=== PATIENT | male | born 1965 | race Hispanic/Latino ===

== ENCOUNTER 2019-11-25 16:22 | Emergency (ER) | payer SELFPAY ==
--- NOTE | ~2019-11-25 | XR_ITS ---
EXAMINATION: XR chest 2V EXAM DATE: 11/25/2019 17:11 INDICATION: US chest pain. Productive cough. TECHNIQUE: Frontal and lateral projections of the chest obtained and reviewed. Comparison is made to prior examination from 05/23/2016. FINDINGS: The lungs are clear. There are no pleural effusions. The cardiomediastinal silhouette is within normal limits. There is no pneumothorax suspected. The bones and soft tissues are unremarkab le. IMPRESSION: Unremarkable chest x-ray exam. Reviewed, dictated and finalized at location A. 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
--- NOTE | 2019-11-25 16:54 | ECG_ITS ---
Measurements Intervals [place] Rate: 97 P: 46 OH: 157 QRS: 13 QRSD: 108 T: 61 QT: 338 QTc: 430 Interpretive Statements SINUS RHYTHM INCOMPLETE RIGHT BUNDLE BRANCH BLOCK DELAYED PRECORDIAL R/S TRANSITION BORDERLINE ECG Electronically Signed On 11-25-2019 18:52:05 IMPORT SPECIALIST by Sunday Garcia D.O.
[2019-11-25 16:55] VITALS: BP 140/82; PULSE 94; RESP 17; TEMP 37.6; O2SAT 100
[2019-11-25 17:07] LABS: Basophils Absolute Auto 0.1 K/mm3 (0.0-0.1); Basophils Percent Auto 0.7 % (0.2-1.2); Eosinophils Absolute Auto 0.8 K/mm3 (0-0.3); Eosinophils Percent Auto 7.6 % (0-4.4); Hematocrit 42.3 % (42.0-52.0); Hemoglobin 14.5 g/dL (14.0-18.0); Immature Granulocyte Absolute 0.03 K/mm3 (0.00-0.031); Immature Granulocyte Percent A 0.3 % (0-0.5); Lymphocytes Absolute Auto 1.45 K/mm3 (0.9-3.2); Lymphocytes Percent Auto 13.5 % (18.3-44.2); Mean Corpuscular HGB Conc 34.3 g/dl (32-36); Mean Corpuscular Hemoglobin 30.5 pg (26-34); Mean Corpuscular Volume 88.9 fl (80-100); Mean Platelet Volume 9.3 fl (7.4-10.4); Monocytes Absolute Auto 0.7 K/mm3 (0.1-0.6); Monocytes Percent Auto 6.9 % (2.6-8.5); Neutrophils Absolute Auto 7.6 K/mm3 (1.3-6.7); Platelet Count Result 255 k/mm3 (150-375); Red Blood Count 4.76 M/mm3 (4.6-6.20); Red Cell Distribution Width 13.2 % (11.5-14.5); White Blood Count 10.7 K/mm3 (4.5-10.0)
[2019-11-25 17:17] LABS: Prothrombin Time 12.4 Seconds (11.1-14.7)
[2019-11-25 17:18] LABS: Blood Urea Nitrogen 12 mg/dL (9-20); Carbon Dioxide 28 mmol/L (22-30); Chloride 102 mmol/L (98-107); Estimated Glomerular Filt Rate > 60; Glucose 116 mg/dL (75-110); Partial Thromboplastin Time 28.5 SECONDS (22.3-36.8); Potassium 3.8 mmol/L (3.4-5.0); Sodium 138 mmol/L (137-145)
[2019-11-25 17:30] LABS: Troponin I < 0.012 ng/mL (0.000-0.034)
[2019-11-25 17:50] VITALS: BP 141/84; PULSE 93; RESP 13; O2SAT 98
--- NOTE | 2019-11-25 17:58 | ED.CHESTPAIN ---
HPI - Chest Pain General Chief Complaint: Chest Pain Stated Complaint: SOB Time Seen by Provider: 11/25/19 17:55 Source: family and RN notes reviewed Mode of arrival: other Limitations: no limitations History of Present Illness HPI narrative: Pt is a 54 y/o male who presents to the ED with c/o generalized chest tightness pain that began a few days ago. Pt?s daughter was at bedside and translated for the patient. Pt took Daquil and Cipro today. Pt's daughter notes that he took the Cipro today hoping his sore throat would go away. Pt had an old prescription of Cipro from a previous ear infection. Pt's chest pain is currently resolved. Pt also reports sore throat, fever, productive cough, and SOB, but denies nausea, vomiting, and lightheadedness. MD complaint: chest pain Onset (ago): day(s) (few) Timing of current episode: now resolved Pain location: other (midsternal) Pain radiation: none Quality: tightness Associated symptoms: dyspnea, fever, cough (productive) and other (sore throat) Treatment prior to arrival: other (Dayquil and Cipro) Related Data Allergies Allergy/AdvReac Type Severity Reaction Status Date / Time No Known Allergies Allergy Verified 04/16/19 13:22 Review of Systems Review of Systems: All systems reviewed & are unremarkable except as noted in HPI and below Constitutional: Constitutional: Reports fever(s) ENT: Reports sore throat Cardiovascular: Cardiovascular: Reports chest pain (midsternal) and Denies lightheadedness Respiratory: Respiratory: Reports cough (productive) Gastrointestinal: Gastrointestinal: Denies nausea and Denies vomiting PMFSH Past Medical History Medical History (Updated 11/25/19 @ 19:06 by Nubia Whelan) GERD (gastroesophageal reflux disease) HTN (hypertension) Hyperlipidemia Inguinal hernia Surgical History Surgical History (Updated 11/25/19 @ 19:06 by Nubia Whelan) H/O inguinal hernia repair History of orthopedic surgery left shoulder, lower back surgery Social History Social History Gender identity (if verbalized by the patient): Male Exam Const: General: healthy appearing and no acute distress Nutritional Appearance: well nourished HENMT: Mouth: Yes lip normal and Yes moist mucous membranes Throat: posterior oropharynx abnormal erythema Neck: Neck: lymphadenopathy anterior cervical Resp: Effort & Inspection: normal respiratory effort Auscultation: clear to auscultation bilaterally Cardio: Rate: regular rate Rhythm: regular rhythm Heart sounds: no murmurs Back/Spine/Pelvis: Back: other (full ROM) Skin: General skin exam: normal color, dry skin and other (warm) Course Vital Signs Vital signs: Vital Signs Temperature 37.6 C 11/25/19 16:55 Pulse Rate 94 11/25/19 16:55 Respiratory Rate 17 11/25/19 16:55 Blood Pressure 140/82 11/25/19 16:55 Pulse Oximetry 100 11/25/19 16:55 Temperature 37.6 C 11/25/19 16:55 Pulse Rate 78 11/25/19 19:02 Respiratory Rate 16 11/25/19 19:02 Blood Pressure 135/85 11/25/19 19:02 Pulse Oximetry 98 11/25/19 19:02 MDM - Chest Pain Differential Diagnosis Differential diagnosis: Likely atypical chest pain and other (Influenza, Strep throat) Medical Records Data Attestation: I reviewed the patient's medical records. Lab Data Attestation: I reviewed the patient's lab results. Result diagrams: 11/25/19 16:57 11/25/19 16:57 Labs: Lab Results 11/25/19 11/25/19 11/25/19 Range/Units 16:57 16:57 16:57 WBC 10.7 H (4.5-10.0) K/mm3 RBC 4.76 (4.6-6.20) M/mm3 Hgb 14.5 (14.0-18.0) g/dL Hct 42.3 (42.0-52.0) % MCV 88.9 (80-100) fl MCH 30.5 (26-34) pg MCHC 34.3 (32-36) g/dl RDW 13.2 (11.5-14.5) % Plt Count 255 (150-375) k/mm3 MPV 9.3 (7.4-10.4) fl Immature Gran % (Auto) 0.3 (0-0.5) % Neut % (Auto) 71.0 (45.5-73.1) % Lymph % (Auto) 13.5 L (18.3-44.2) % Elbert % (Auto) 6.9 (2.
[2019-11-25] MEDS: PENICILLIN V POTASSIUM 250 MG TABLET 500 MG PO (18:59)
[2019-11-25 19:02] VITALS: BP 135/85; PULSE 78; RESP 16; O2SAT 98
== END 2019-11-25 19:44 | disposition home or self-care (01) ==
PROVIDERS: Emergency Medicine; Emergency Provider Emergency Medicine; PCP Family Medicine
DX: J02.0 Streptococcal pharyngitis (principal); K21.9 Gastro-esophageal reflux disease without esophagitis; I10 Essential (primary) hypertension; E78.5 Hyperlipidemia, unspecified
CPT/HCPCS: 36415; 71046; 80048; 84484; 85025; 85610; 85730; 87804; 87880; 93005; 96372; 99283; 99284; A9270; J1100

== ENCOUNTER 2020-03-04 08:45 | Emergency (ER) | payer SELFPAY ==
--- NOTE | ~2020-03-04 | CT_ITS ---
EXAMINATION: CT abdomen pelvis wo con DATE: 03/04/2020 11:26 INDICATION: Right flank pain TECHNIQUE: Computed tomography (CT) of the abdomen and pelvis was performed without intravenous contr ast. The dose-length product (DLP) was 1010.55 mGy-cm. Automated exposure control and iterative recon struction technique were employed. COMPARISON: 02/02/2019 FINDINGS: The heart size is normal. A stable 3 mm nodule of the right lower lobe is consistent with o ld granulomatous disease. The liver, spleen, pancreas, and adrenal glands are normal. Stones are pres ent in the nondistended gallbladder. The kidneys are unremarkable. No stones are identified in the ki dneys, ureters, or bladder. There is no hydronephrosis or hydroureter. No pathologically enlarged abd ominal or pelvic lymph nodes are identified. There is no free intraperitoneal gas or evidence of landy l obstruction. There is chronic mild enlargement of the gas-containing appendix which does not demons trate wall thickening or periappendiceal inflammatory change. There are changes of anterior fusion pr ocedure at L4-5 and L5-S1. IMPRESSION: 1. No urinary tract calculi, hydronephrosis, or hydroureter. 2. Cholelithiasis without additional findings of cholecystitis. Reviewed, dictated and finalized at location A.
--- NOTE | ~2020-03-04 | XR_ITS ---
EXAMINATION: XR abdomen/kub 1V INDICATION: Right flank pain TECHNIQUE: Supine views of the abdomen were obtained on 2 radiographs. COMPARISON: None FINDINGS: The bowel gas pattern is normal. No abnormal calcifications are identified. There are no di lated loops of bowel. Surgical changes are noted in the lumbar spine. IMPRESSION: 1. No radiographic correlate for the patient's symptoms. Reviewed, dictated and finalized at location A.
--- NOTE | ~2020-03-04 | US_ITS ---
EXAMINATION: US right upper quadrant DATE: 03/04/2020 09:58 INDICATION: Right flank pain TECHNIQUE: Multiple grayscale and Doppler ultrasound images of the abdomen were obtained. COMPARISON: CT, 02/02/2019 FINDINGS: Bowel gas obscures visualization of the pancreas. The visualized portions of the pancreas a re unremarkable. The liver demonstrates increased echogenicity, heterogenous echotexture, and decreas ed through transmission. No surface nodularity. Normal hepatopetal flow in the main portal vein. Ther e are multiple stones present in the nondistended gallbladder. There is no gallbladder wall thickenin g or pericholecystic fluid. The normal common bile duct measures 3 mm. There was no sonographic Vijay y sign. IMPRESSION: 1. Cholelithiasis without evidence of cholecystitis. 2. Diffuse hepatic steatosis. Reviewed, dictated and finalized at location A.
[2020-03-04 08:58] VITALS: BP 137/85; PULSE 86; RESP 20; TEMP 36.8; O2SAT 100
[2020-03-04 09:10] LABS: Basophils Percent Auto 0.6 % (0.2-1.2); Eosinophils Absolute Auto 0.1 K/mm3 (0-0.3); Eosinophils Percent Auto 3.2 % (0-4.4); Hematocrit 43.7 % (42.0-52.0); Hemoglobin 14.9 g/dL (14.0-18.0); Immature Granulocyte Absolute 0.01 K/mm3 (0.00-0.031); Immature Granulocyte Percent A 0.3 % (0-0.5); Lymphocytes Absolute Auto 1.45 K/mm3 (0.9-3.2); Mean Corpuscular HGB Conc 34.1 g/dl (32-36); Mean Corpuscular Hemoglobin 30.4 pg (26-34); Mean Corpuscular Volume 89.2 fl (80-100); Mean Platelet Volume 9.2 fl (7.4-10.4); Monocytes Absolute Auto 0.4 K/mm3 (0.1-0.6); Monocytes Percent Auto 12.5 % (2.6-8.5); Neutrophils Absolute Auto 1.4 K/mm3 (1.3-6.7); Neutrophils Percent Auto 41.4 % (45.5-73.1); Platelet Count Result 210 k/mm3 (150-375); Red Cell Distribution Width 13.7 % (11.5-14.5); White Blood Count 3.5 K/mm3 (4.5-10.0)
--- NOTE | 2020-03-04 09:11 | ED.ABDPAIN ---
HPI - Abdominal Pain General Chief Complaint: Urogenital-Male Stated Complaint: Right Flank Pain, Fever Time Seen by Provider: 03/04/20 08:54 Source: patient Mode of arrival: ambulatory Limitations: language barrier (sinhala speaking with daughter helping with interpretation. Patient understands some) History of Present Illness HPI narrative: This patient is a 55 year old male with history of gallstones who presents for evaluation of right flank pain. He states he has had this right flank pain intermittently over the past 1 year but is has been constant for the past 3 days. His pain does radiation around to his upper abdomen He also states he has worsening pain with eating. His daughter states he has had subjective fever and he last took 1000 mg tylenol at 1 am this morning. He states this medication does provide some relief of his pain. He denies nausea , vomiting, cough or sob. He also noted dysuria but he denies history of UTI or kidney stone. He was seen by a specialist for his gallstones 1 year ago he was told no surgery at that time. MD elicited complaint: flank pain Related Data Allergies Allergy/AdvReac Type Severity Reaction Status Date / Time No Known Allergies Allergy Verified 03/04/20 09:03 Review of Systems Review of Systems: All systems reviewed & are unremarkable except as noted in HPI and below Constitutional: Constitutional: Reports chills and Reports fever(s) ENT: Denies sore throat Cardiovascular: Cardiovascular: Denies chest pain and Denies radiating jaw, neck or arm pain Respiratory: Respiratory: Denies cough, Denies dyspnea and Denies wheezing Gastrointestinal: Gastrointestinal: Reports abdominal pain, Denies diarrhea, Reports nausea and Denies vomiting Genitourinary: Genitourinary: Reports dysuria, Denies penile discharge and Denies testicular pain Musculoskeletal: Musculoskeletal: Reports back pain [facility] Past Medical History Medical History (Updated 03/04/20 @ 12:57 by Laure Donis MD) GERD (gastroesophageal reflux disease) HTN (hypertension) Hyperlipidemia Inguinal hernia Surgical History Surgical History (Updated 11/25/19 @ 19:06 by Nubia Whelan) H/O inguinal hernia repair History of orthopedic surgery left shoulder, lower back surgery Social History Social History (Updated 03/04/20 @ 09:12 by Laure Donis MD) Smoking status: Former smoker Alcohol intake: never Gender identity (if verbalized by the patient): Male Exam Narrative: Exam Narrative: GENERAL: Well-appearing, well-nourished, and in no acute distress. HEAD: Normocephalic, atraumatic EYES: PERRLA and EOMI, conjunctiva clear without discharge NECK: Supple, without lymphadenopathy or mass RESPIRATORY: No respiratory distress, Airway patent, Respirations non-labored, Clear to auscultation without rales, rhonchi or wheeze HEART: Regular rate and rhythm. No murmur heard. Normal peripheral pulses. ABDOMEN: Soft, nontender, nondistended, normal active bowel sounds. No masses. No rebound or guarding, No organomegaly. EXTREMITIES: No edema, normal strength with full range of motion. SKIN: Warm, dry, normal color without rash NEURO: Alert and oriented x3. CN 2-12 grossly intact. No focal deficits. PSYCH: Normal mood and affect. Course Reevaluation(s) Reevaluation #1: Patient states his pain has resolved after last dose of pain medication Date: 03/04/20 Time: 12:54 Consultations Consultation #1: I Discussed case with Dr. Burciaga who will get patient into clinic this week . Date: 03/04/20 Time: 12:54 Vital Signs Vital signs: Vital Signs Temperature 98.3 F 03/04/20 08:58 Pulse Rate 86 03/04/20 08:58 Respiratory Rate 03/04/20 08:58 Blood Pressure 137/85 03/04/20 08:58 Pulse Oximetry 100 03/04/20 08:58 Temperature 98.3 F 03/04/20 08:58 Pulse Rate 70 03/04/20 13:13 Respiratory Rate 03/04/20 13:13 Blood Pressure 138/70 03/04/20 13:13
[2020-03-04 09:22] LABS: Alanine Aminotransferase 23 U/L (4-50); Albumin Level 4.4 g/dL (3.5-5.1); Alkaline Phosphatase 88 U/L (38-126); Aspartate Amino Transferase 26 U/L (17-59); Bilirubin,Total 0.8 mg/dL (0.2-1.3); Blood Urea Nitrogen 10 mg/dL (9-20); Calcium 8.5 mg/dL (8.4-10.2); Carbon Dioxide 24 mmol/L (22-30); Chloride 103 mmol/L (98-107); Estimated CRCL calculation 131 ml/min; Estimated Glomerular Filt Rate > 60; Glucose 113 mg/dL (75-110); Lipase 84 U/L (23-300); Potassium 4.3 mmol/L (3.4-5.0); Sodium 135 mmol/L (137-145)
[2020-03-04 09:24] LABS: Add Urine Microscopic? YES; Appearance Urine Clear (Clear); Bilirubin Urine Negative (Negative); Blood Urine 1+ (Negative); Color Urine Yellow (Yellow); Glucose Urine UA Negative (Negative); Ketones Urine Negative (Negative); Leukocyte Esterase Ur Negative LEU/UL (Negative); Mucus Urine Rare /lpf; Nitrate Urine Negative (Negative); Protein Urine Negative (Negative); Urobilinogen Urine Negative mg/dL (<2.0); WBC Urine 0-3 /hpf
[2020-03-04] MEDS: MORPHINE SULFATE 4 MG/ML INJ IV PUSH (09:24)
[2020-03-04] MEDS: ONDANSETRON INJ 4 MG/2 ML VIAL IV PUSH (09:25)
[2020-03-04 10:08] VITALS: BP 146/79; PULSE 74; RESP 20; O2SAT 100
[2020-03-04 11:30] VITALS: PULSE 72; RESP 20; O2SAT 100
[2020-03-04] MEDS: HYDROMORPHONE HCL 1 MG/ML INJ 0.5 MG IV PUSH (12:15)
[2020-03-04 13:12] VITALS: PULSE 70; RESP 20; O2SAT 100
[2020-03-04 13:13] VITALS: BP 138/70; PULSE 70; RESP 20; O2SAT 100
== END 2020-03-04 13:14 | disposition home or self-care (01) ==
PROVIDERS: Emergency Provider General Practice; PCP Family Medicine
DX: K80.20 Calculus of gallbladder without cholecystitis without obstruction (principal); K21.9 Gastro-esophageal reflux disease without esophagitis; I10 Essential (primary) hypertension; E78.5 Hyperlipidemia, unspecified; Z87.891 Personal history of nicotine dependence
CPT/HCPCS: 36415; 74018; 74176; 76705; 80053; 81001; 83690; 85025; 96374; 96375; 99284; J1170; J2270; J2405

== ENCOUNTER 2020-03-14 11:38 | Outpatient (CLI) | payer SELFPAY ==
[2020-03-14 12:59] LABS: Hematocrit 41.8 % (42.0-52.0); Hemoglobin 14.2 g/dL (14.0-18.0); Mean Corpuscular Hemoglobin 30.2 pg (26-34); Mean Corpuscular Volume 88.9 fl (80-100); Mean Platelet Volume 8.6 fl (7.4-10.4); Platelet Count Result 308 k/mm3 (150-375); Red Cell Distribution Width 13.4 % (11.5-14.5); White Blood Count 6.1 K/mm3 (4.5-10.0)
[2020-03-14 13:27] LABS: Alanine Aminotransferase 19 U/L (4-50); Albumin Level 4.2 g/dL (3.5-5.1); Alkaline Phosphatase 86 U/L (38-126); Amylase 74 U/L (30-110); Aspartate Amino Transferase 18 U/L (17-59); Bilirubin,Total 1.1 mg/dL (0.2-1.3); Lipase 88 U/L (23-300)
== END 2020-03-14 11:39 | disposition home or self-care (01) ==
LOC: ANHSURGERY 11:39
PROVIDERS: PCP Family Medicine; Visit Provider Surgery
DX: K80.10 Calculus of gallbladder with chronic cholecystitis without obstruction (principal)
CPT/HCPCS: 36415; 80076; 82150; 83690; 85027

== ENCOUNTER 2020-03-18 04:23 | Outpatient (CLI) | payer OTHER, SELFPAY ==
[2020-03-18 21:29] LABS: SARS-CoV-2 RNA PCR Positive
== END 2020-03-18 04:24 | disposition home or self-care (01) ==
LOC: ANHCOVIDDT 04:23
PROVIDERS: PCP Family Medicine; Visit Provider Surgery
DX: Z01.818 Encounter for other preprocedural examination (principal); U07.1 COVID-19
CPT/HCPCS: 87635; C9803; U0003

== ENCOUNTER 2020-04-10 01:05 | Outpatient (CLI) | payer OTHER, SELFPAY ==
[2020-04-10 19:20] LABS: SARS-CoV-2 RNA PCR Positive
== END 2020-04-10 01:06 | disposition home or self-care (01) ==
LOC: ANHCOVIDDT 01:06
PROVIDERS: PCP Family Medicine; Visit Provider Surgery
DX: U07.1 COVID-19 (principal)
CPT/HCPCS: 87635; C9803; U0003

== ENCOUNTER 2020-04-21 00:01 | Outpatient (CLI) | payer OTHER, SELFPAY ==
[2020-04-21 20:43] LABS: SARS-CoV-2 RNA PCR Negative
== END 2020-04-21 00:02 | disposition home or self-care (01) ==
LOC: ANHCOVIDDT 00:01
PROVIDERS: PCP Family Medicine; Visit Provider Surgery
DX: Z01.812 Encounter for preprocedural laboratory examination (principal); Z11.59 Encounter for screening for other viral diseases
CPT/HCPCS: 87635; C9803; U0003

== ENCOUNTER 2020-04-24 00:55 | Day surgery (SDC) | payer SELFPAY ==
[2020-03-14 12:07] VITALS: BP 114/66; PULSE 76; RESP 20; TEMP 37.1; O2SAT 100
[2020-03-14 12:29] VITALS: BMI 29.6
[2020-04-18 16:02] VITALS: BMI 29.6
[2020-04-24] VITALS (10 sets, daily range): BP systolic 130–148; BP diastolic 74–87; PULSE 65–85; RESP 13–17; TEMP 36.9; O2SAT 96–100; BMI 29.2
--- NOTE | 2020-04-24 07:35 | PM.HPGS ---
History of Present Illness History of Present Illness Consent: Risks, benefits, and alternatives have been discussed and questions answered. Patient agrees to proceed with procedure. Chief complaint: Chronic Cholelithiasis With Cholecystitis Narrative: Nick Schwarz is a 55 year old male that presented to the office after a recent visit to [facility] on 03/04/2020 for an evaluation of abdominal pain. Patient reports that he has had RUQ and right flank pain on and Off for over a year, however over the last few weeks the pain has become more constant. He Subsequently tested positive for COVID twice before a negative test. He now presents for elective outpatient laparoscopic cholecystectomy. Patient had a RUQ US while in the ER that showed cholelithiasis without evidence of cholecystitis and diffuse hepatic steatosis. He also had a CT scan of abdomen and pelvis without contrast at that time as well this showed no urinary tract calculi, hydronephrosis, or hydroureter. Cholelithiasis without additional findings of cholecystitis. He reports since the ER visit, the pain has been constant never goes fully away. He reports if he lays on his left side this helps reduce the pressure. He reports he does take OTC Tylenol 500mg usually once a day to help lessen the pain. He reports the pain is sometimes not as intense as other times. Other medical history includes GERD, hypertension, and high cholesterol. Surgical history includes inguinal hernia repair, lower back surgery, and left should surgery. Review of Systems Constitutional: Constitutional: Reports no additional constitutional complaints and Denies frequent falls Eyes: Eyes: Reports as per HPI ENT: Reports Normal hearing present, Denies dizziness and Reports other (Mucous membranes moist.) Cardiovascular: Cardiovascular: Denies chest pain, Denies palpitations, Denies dyspnea and Denies dyspnea on exertion Respiratory: Respiratory: Denies hemoptysis, Denies dyspnea, Denies dyspnea on exertion and Denies wheezing Gastrointestinal: Gastrointestinal: Reports no additional gastrointestinal complaints Genitourinary: Genitourinary: Denies hematuria, Denies nocturia and Denies urinary frequency Musculoskeletal: Musculoskeletal: Denies deformity and Reports other ( no clubbing,cyanosis, or edema) Integumentary/Breasts: Skin/Breast: Denies new lesions, Denies rash and Denies unusual bruising Neurologic: Reports Normal hearing present, Denies dizziness, Denies frequent falls, Denies memory loss and Denies seizure-like activity Psychiatric: Psychiatric: Denies memory loss and Reports other ( normal mood and mental status) Endocrine: Endocrine: Denies cold intolerance and Denies palpitations Hematologic/Lymphatic: Hematologic/Lymphatic: Denies easy bleeding and Denies easy bruising Allergic/Immunologic: Allergic/Immunologic: Denies wheezing and Reports other ( no lymphadenopathy) [facility] Past Medical History Medical History GERD (gastroesophageal reflux disease) HTN (hypertension) Hyperlipidemia Inguinal hernia Surgical History Surgical History H/O inguinal hernia repair History of orthopedic surgery left shoulder, lower back surgery Family History Family History Father Diabetes mellitus Social History Social History Smoking status: Former smoker Alcohol intake: never 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
--- NOTE | 2020-04-24 09:18 | WPDANESEPPF ---
Anes - Initial Pre Proc Eval Procedure: Operation Date: 04/24/20 10:30 Proposed Procedures p Laparoscopic Cholecystectomy, Possible Intraoperative Cholangiogram, Possible Open - Calvin Burciaga MD Date/Time: 04/24/20 09:18 Surgeon: Calvin Burciaga MD Pre Op Diagnosis: Chronic Cholelithiasis With Cholecystitis Patient Data Age: 55 Gender: M Height: 6 ft Weight: 99 kg Last Vital Signs Temp 37.1 C 03/14/20 12:07 Pulse 76 03/14/20 12:07 Resp 20 03/14/20 12:07 BP 114/66 03/14/20 12:07 Pulse Ox 100 03/14/20 12:07 Allergies Allergy/AdvReac Type Severity Reaction Status Date / Time No Known Allergies Allergy Verified 04/18/20 16:02 Home Medications Medication Instructions Recorded Confirmed Type acetaminophen 500 mg tablet 500 mg PO Q6H PRN 03/09/20 04/18/20 History Patient hx anesthesia problems: none Family hx anesthesia problems: none [facility] Past Medical History Medical History GERD (gastroesophageal reflux disease) HTN (hypertension) Hyperlipidemia Inguinal hernia Surgical History Surgical History H/O inguinal hernia repair History of orthopedic surgery left shoulder, lower back surgery Family History Family History Father Diabetes mellitus Social History Social History Smoking status: Former smoker Alcohol intake: never 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 Questions were solicited and answers provided to the satisfaction of the patient/family/POA.
[2020-04-24 09:27] LABS: Hematocrit 41.5 % (42.0-52.0); Hemoglobin 14.4 g/dL (14.0-18.0); Mean Corpuscular HGB Conc 34.7 g/dl (32-36); Mean Corpuscular Hemoglobin 31.1 pg (26-34); Mean Corpuscular Volume 89.6 fl (80-100); Mean Platelet Volume 9.6 fl (7.4-10.4); Platelet Count Result 261 k/mm3 (150-375); Red Blood Count 4.63 M/mm3 (4.6-6.20); Red Cell Distribution Width 13.6 % (11.5-14.5); White Blood Count 5.9 K/mm3 (4.5-10.0)
[2020-04-24] MEDS: LACTATED RINGERS 1,000 ML 30 ML IV CONT (09:30)
[2020-04-24] MEDS: KETOROLAC 15 MG/ML VIAL (*BKC) IV PUSH (09:49)
[2020-04-24] MEDS: ceFAZolin 2 GM/D5W 50 ML 2 GM/50 ML BAG IVPB (10:01)
[2020-04-24] MEDS: BUPIVACAINE/EPINEPHRINE 0.5% 10 ML VIAL 20 ML INFILTRATE (10:11)
--- NOTE | 2020-04-24 11:29 | P.OP_ITS ---
Procedure Note - Detailed Date of procedure: 04/24/20 Pre-op diagnosis: Chronic Cholelithiasis With Cholecystitis Chronic Cholecystitis with Cholelithiasis Post-op diagnosis: same Procedure performed: Laparoscopic Cholecystectomy Description of procedure: Patient was seen preoperatively in the holding area and risks, benefits and alternatives confirmed. Patient was taken to the operating room and general anesthesia was induced. A time out was then preformed with the surgery team confirming patient and site of surgery. The abdomen was prepped and draped in the usual sterile fashion. Incision was made just below the umbilicus with an 11 blade knife. I placed 2 stay sutures of O- Vicryl on either side of the mid- line fascia beneath the umbilicus and was then able to slide in the Crisostomo cannula through the fascial defect into the peritoneum. First under low flow and then under high flow the abdomen was insufflated with carbon dioxide never exceeding a pressure of 14. Three 5 mm trocars were then introduced under direct vision. The following trocars were introduced under direct vision: a 5 mm in the epigastrium and two 5 mm trocars along the right costal margin laterally in the subcostal area. There was significant omental adhesions to the underside of the gallbladder. These were taken down with blunt and sharp dissection using some Bovie cautery for hemostasis. We were able to dissect this completely away from the neck of the gallbladder. I then carefully used the L-shaped cautery and the [place] dissector to dissect out the triangle of [place]. I then was able to dissect out both the cystic duct and cystic artery and identify a window of safety. The gall bladder was grasped and the cystic duct and artery were dissected free and clipped with an 5 mm endo-clip welding machine operator/tender. The cystic duct and artery were clipped with use of 2 clips on the patient's side 1 on the gallbladder side utilizing a 5 mm endoclip- welding machine operator/tender. The cystic duct was then transected. The cystic artery was also transected at this point. The gall bladder was removed using electrocautery and then removed from the abdomen using a large 10 mm grasper via the umbilical incision. Both groins were inspected. The right show signs of previous her hernia repair with no recurrence the left shows a small fat containing inguinal hernia. There were no significant adhesions underneath his left lower quadrant paramedian scar. The trocars were removed visualizing hemostasis and the remaining gas evacuated. The large trocar site at the umbilicus was closed with use of the 2 stay sutures of 0 Vicryl mentioned above and also a figure of 8 O-Vicryl suture. The 2 stay sutures mentioned above on either side of the fascia were also tied together to help approximate this midline fascia. Further local anesthetic was placed into each incision for postop pain control. The skin incisions were closed with subcuticular suture of 4-0 Monocryl. Surgical glue then was applied to all the incisions. Patient tolerated the procedure well was taken to the recovery room in good condition. Anesthesia: GETA Surgeon: Calvin Burciaga MD Lather Apprentice: Lizette GUTIERREZ, OR first line production supervisor Estimated blood loss (mL): 15 Drains: No Packing: No Pathology: yes (Gallbladder) Complications: No immediate complications Condition: stable Disposition: PACU Findings: The gallbladder was thin-walled and blue in color. There were some it might omental adhesions to its underside were fairly easily taken down. Interestingly, with palpation upon removing the gallbladder we could not feel definite stones within it.
== END 2020-04-24 13:56 | disposition home or self-care (01) ==
PROVIDERS: PCP Family Medicine; Visit Provider Surgery
PROC: 0FT44ZZ Resection of Gallbladder, Percutaneous Endoscopic Approach (ICD-10-PCS; CPT 47562; principal; 2020-04-24 10:30)
DX: K80.10 Calculus of gallbladder with chronic cholecystitis without obstruction (principal); I10 Essential (primary) hypertension; E78.5 Hyperlipidemia, unspecified; K21.9 Gastro-esophageal reflux disease without esophagitis; E66.3 Overweight; Z68.29 Body mass index [BMI] 29.0-29.9, adult; Z87.891 Personal history of nicotine dependence; Z86.19 Personal history of other infectious and parasitic diseases
CPT/HCPCS: 47562; 36415; 85027; 88304; A9270; J0690; J1100; J1885; J2250; J2405; J2704; J2710; J3010; J7120

== ENCOUNTER 2022-11-22 06:36 | Outpatient (CLI) | payer MEDICAID, SELFPAY ==
--- NOTE | ~2022-11-22 | MR_ITS ---
EXAMINATION: MR pelvis wo/w con DATE: 11/22/2022 07:58 INDICATION: Massive urinary bladder. TECHNIQUE: Magnetic resonance imaging (MRI) of the pelvis was performed without and with 19 mL MultiH ance intravenous contrast. COMPARISON: CT 03/04/2020, 02/02/2019 FINDINGS: There is mild diffuse bladder wall thickening. There is a chronic small urachal remnant, stable from 02/02/19. The prostate is mildly enlarged. There is a 15 x 9 mm cyst in the prostate at the midline po sterior to the urethra. Stool distends the rectosigmoid. There is artifact from anterior fusion proce dures in the lower lumbar spine. There are no pathologically enlarged lymph nodes. There is trace asc ites. There is a left inguinal hernia containing fat. IMPRESSION: 1. Mild diffuse bladder wall thickening, likely secondary to chronic outlet obstruction from the mild ly enlarged prostate. Reviewed, dictated and finalized at location A. 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 Mild diffuse bladder wall thickening, likely secondary to chronic outlet obs truction from the mildly enlarged prostate.
== END 2022-11-22 06:37 | disposition home or self-care (01) ==
PROVIDERS: PCP Physician Assistant; Visit Provider Physician Assistant
DX: N32.89 Other specified disorders of bladder (principal)
CPT/HCPCS: 72197; A9577

== ENCOUNTER 2022-12-26 06:43 | Outpatient (CLI) | payer MEDICAID, SELFPAY ==
--- NOTE | ~2022-12-26 | MR_ITS ---
EXAMINATION: MR abdomen wo/w con DATE: 12/26/2022 07:46 INDICATION: Liver mass right-sided abdominal pain. TECHNIQUE: Magnetic resonance imaging (MRI) of the abdomen was performed without and with 19 mL Multi david intravenous contrast. Sequences included coronal T2-weighted SS-FSE, coronal and axial FS 2D-F IESTA, axial STIR FSE, axial T2-weighted SS-FSE, axial T2-weighted FS SS-FSE, axial diffusion-weighte d SE, axial dual-echo T1-weighted FSPGR, and axial and coronal T1-weighted LAVA. Postcontrast axial T 1-weighted LAVA images were obtained in a time course. Postcontrast coronal T1-weighted LAVA images w ere obtained. COMPARISON: CT and ultrasound dated 03/04/2020 FINDINGS: Heart size is normal. No pericardial or pleural effusion. 6.8 cm lesion with restricted diffusion and increased T2 signal at the junction of segments IVb and 5 of the liver. The demonstrates lobular mar gins with numerous thin enhancing septations superimposed over a nonenhancing background of which hari ear to be numerous subcentimeter cystic regions with cluster of grape like appearance. Enhancement pa ttern remains relatively constant with no progressive filling of contrast as would be expected for he mangioma or evident washout of enhancing components hasn't be expected for malignancy. Also arguing a gainst malignancy is the absence of significant mass effect upon the existing hepatic vasculature pat tern with a few vessels extending through the lesion. The lesion is without correlate on the prior im aging. Constellation of findings would be most consistent with a hepatic abscess. Liver is otherwise normal. Interval cholecystectomy with magnetic field artifact associated with metallic surgical clips at the empty gallbladder fossa. Spleen, pancreas, bilateral adrenal glands and kidneys are normal. V isualized portion of the bowels are unremarkable. No pathologically enlarged abdominal lymphadenopath y. Additional prominent metallic field artifact associated with fixation instrumentation for an L4-S1 anterior spinal fusion. Bones are otherwise unremarkable. IMPRESSION: 1. 6.8 cm complex cystic lesion at the junction of the right and left hepatic lobes with appearance m ost consistent with a multiloculated hepatic abscess with no larger component amenable to drainage ca theter placement. Given the history of prior colon cancer the differential would include metastatic d isease however is considered significantly less likely. Correlate with clinical history and could con heel layer biopsy/aspiration for further evaluation as clinically indicated. Reviewed, dictated and finalized at location A. IMPRESSION: 1. 6.8 cm complex cystic lesion at the junction of the right and left hepatic l obes with appearance most consistent with a multiloculated hepatic abscess with no larger component amenable to drainage catheter placement. Given the history of prior colon cancer the differential would include metastatic disease howeve r is considered significantly less likely. Correlate with clinical history and could consider biopsy/aspiration for further evaluation as clinically indicated .
== END 2022-12-26 06:44 | disposition home or self-care (01) ==
PROVIDERS: PCP Physician Assistant; Visit Provider Physician Assistant
DX: R16.0 Hepatomegaly, not elsewhere classified (principal); K76.9 Liver disease, unspecified
CPT/HCPCS: 74183; A9577

== ENCOUNTER 2023-03-08 05:10 | Emergency (ER) | payer MEDICAID, SELFPAY ==
--- NOTE | ~2023-03-08 | CT_ITS ---
EXAMINATION: CT abdomen pelvis w con DATE: 03/08/2023 06:38 INDICATION: Abdominal pain. Nausea and vomiting. Colon cancer. Patient is having chemotherapy. TECHNIQUE: Computed tomography (CT) of the abdomen and pelvis was performed with 100 CC Omnipaque 350 intravenous contrast. Automated exposure control and iterative reconstruction technique were employe d. Exam dose: 808.43 mGy-cm total exam DLP. COMPARISON: December 26, 2022 MRI abdomen March 04, 2020 CT abdomen pelvis FINDINGS: The lung bases are clear. Normal heart size. No pericardial or pleural effusion. Again noted is an irregular 6.8 cm hepatic mass, which appears stable since December 26, 2022. MR hepatic examination at that time suggested abscess. Differential diagnosis includes primary or metastatic he patic malignancy. This lesion would be amenable to CT-guided percutaneous biopsy. Approximately 7-8 mm hypoattenuating lesion at the posterior margin of the lateral segment of the lef t hepatic lobe, with differential diagnosis of metastasis, cyst, hemangioma. Status post cholecystectomy. No bile duct or pancreatic duct dilatation. No pancreatic mass lesion or calcification. Normal splenic size. Normal morphology of the adrenal glands. No renal mass lesion or urinary tract calculus or hydroureteronephrosis. Mild prostate enlargement, m inimal prostate calcification.. Mild diffuse thickening of the urinary bladder wall. Normal caliber of the abdominal aorta. No intraperitoneal or retroperitoneal or pelvic mass lesion or adenopathy or ascites. Small fat-containing left inguinal hernia. Constricting apple core lesion of the mid transverse colon is suggested, with dilatation and air-flui d levels of the right colon proximal to this point. No evidence of appendicitis. Diverticulosis of the sigmoid and descending anterolisthesis and transverse colon. Status post interbody surgical fusion at L4-5 and L5-S1. Degenerative changes of the lower thoracic a nd lumbar spine. No suspicious osteolytic or osteoblastic lesions are noted. IMPRESSION: Constricting apple core lesion of the mid transverse colon with dilated colon and fluid levels proximal to this point Stable 6.8 cm hepatic mass involving right hepatic lobe, medial segment of left hepatic lobe Approximately 8 mm mass at the posterior margin of the lateral segment left hepatic lobe; differentia l diagnosis is given above Status post cholecystectomy Diverticulosis of the colon Small fat-containing left inguinal hernia Reviewed, dictated and finalized at Location A. Reviewed, dictated and finalized at location A. IMPRESSION: Constricting apple core lesion of the mid transverse colon with di lated colon and fluid levels proximal to this point Stable 6.8 cm hepatic mass involving right hepatic lobe, medial segment of left hepatic lobe Approximately 8 mm mass at the posterior margin of the lateral segment left hep atic lobe; differential diagnosis is given above Status post cholecystectomy Diverticulosis of the colon Small fat-containing left inguinal hernia
[2023-03-08 05:15] VITALS: BP 154/95; PULSE 90; RESP 16; TEMP 36.6; O2SAT 100
--- NOTE | 2023-03-08 05:32 | ECG_ITS ---
Measurements Intervals [place] Rate: 79 P: 47 LA: 148 QRS: -5 QRSD: 95 T: 62 QT: 352 QTc: 404 Interpretive Statements SINUS RHYTHM EARLY TRANSITION BORDERLINE ECG COMPARED TO ECG 11/25/2019 17:01:26 NO SIGNIFICANT CHANGES Electronically Signed On 03-08-2023 9:17:30 CDT by Kyle Mackay M.D.
[2023-03-08] MEDS: MORPHINE SULFATE (*CRX) 4 MG/ML INJ IV PUSH (05:52)
[2023-03-08] MEDS: SODIUM CHLORIDE 0.9% IV 1,000 ML 999 ML IV CONT (05:52)
[2023-03-08] MEDS: ONDANSETRON INJ 4 MG/2 ML VIAL IV PUSH (05:52)
[2023-03-08 05:59] VITALS: BP 144/88; PULSE 86; RESP 18; O2SAT 100
[2023-03-08 06:08] LABS: Basophils Percent Auto 0.7 % (0.2-1.2); Eosinophils Absolute Auto 0.2 K/mm3 (0-0.3); Eosinophils Percent Auto 3.4 % (0-4.4); Hematocrit 40.7 % (42.0-52.0); Hemoglobin 13.1 g/dL (14.0-18.0); Immature Granulocyte Absolute 0.02 K/mm3 (0.00-0.031); Immature Granulocyte Percent A 0.4 % (0-0.5); Lymphocytes Absolute Auto 1.01 K/mm3 (0.9-3.2); Lymphocytes Percent Auto 17.9 % (18.3-44.2); Mean Corpuscular HGB Conc 32.2 g/dl (32-36); Mean Corpuscular Hemoglobin 27.1 pg (26-34); Mean Corpuscular Volume 84.1 fl (80-100); Mean Platelet Volume 8.6 fl (7.4-10.4); Monocytes Absolute Auto 0.7 K/mm3 (0.1-0.6); Monocytes Percent Auto 11.9 % (2.6-8.5); Neutrophils Absolute Auto 3.7 K/mm3 (1.3-6.7); Neutrophils Percent Auto 65.7 % (45.5-73.1); Platelet Count Result 208 k/mm3 (150-375); Red Blood Count 4.84 M/mm3 (4.6-6.20); Red Cell Distribution Width 22.4 % (11.5-14.5); White Blood Count 5.7 K/mm3 (4.5-10.0)
[2023-03-08 06:11] LABS: Appearance Urine Cloudy (Clear); Bacteria Urine None Seen /hpf; Bilirubin Urine Negative (Negative); Blood Urine Negative (Negative); Color Urine Yellow (Yellow); Glucose Urine UA Negative (Negative); Ketones Urine Negative (Negative); Leukocyte Esterase Ur Negative LEU/UL (Negative); Nitrate Urine Negative (Negative); Non Pathogenic Casts 0-2; Protein Urine Negative (Negative); RBC Urine 0-2 /hpf (0-2); Specific Grav Ur 1.016 (1.001-1.035); Squamous Epithelial Cell Urine None seen /hpf (Few); WBC Urine 0-5 /hpf
--- NOTE | 2023-03-08 06:11 | ED.GENADULT ---
HPI - General Adult General Chief complaint: Nausea/Vomiting/Diarrhea <Yamil Garcia MD - Last Filed: 03/08/23 06:44> Stated complaint: chemo pt, constipation Thur @ 1200, n/v <Yamil Garcia MD - Last Filed: 03/08/23 06:44> Time Seen by Provider: 03/08/23 05:27 <Yamil Garcia MD - Last Filed: 03/08/23 06:44> History of Present Illness HPI narrative: Patient 58-year-old gentleman who presents the emergency department with chief complaint of abdominal pain nausea and vomiting. The patient reports that he has history of colon cancer and is currently undergoing cancer treatment with chemotherapy the patient has not had surgical intervention to his cancer but has had a prior cholecystectomy and hernia repair the patient reports he has not had a bowel movement in the last 24 hours. <Yamil Garcia MD - Last Filed: 03/08/23 06:44> Related Data Allergies/adverse reactions: Allergies Allergy/AdvReac Type Severity Reaction Status Date / Time No Known Allergies Allergy Verified 03/08/23 05:13 <Yamil Garcia MD - Last Filed: 03/08/23 06:44> Review of Systems Review of Systems: A 10 system review of systems was completed on the patient and is negative except for what is stated in the HPI. Nursing and ancillary documentation was reviewed. <Yamil Garcia MD - Last Filed: 03/08/23 06:44> [facility] Past Medical History Medical History: Medical History GERD (gastroesophageal reflux disease) HTN (hypertension) Hyperlipidemia Inguinal hernia <Yamil Garcia MD - Last Filed: 03/08/23 06:44> Surgical History Surgical History: Surgical History H/O inguinal hernia repair History of laparoscopic cholecystectomy 04/24/20 History of orthopedic surgery left shoulder, lower back surgery <Yamil Garcia MD - Last Filed: 03/08/23 06:44> Family History Family History: Family History Father Diabetes mellitus <Yamil Garcia MD - Last Filed: 03/08/23 06:44> Social History Social History: Social History Smoking status: Former smoker Alcohol intake: never Living arrangements: with family Occupation/Education: unemployed 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 HEAD: Normocephalic, atraumatic. EYES: PERRLA and EOMI. ENT: Nares clear, no rhinorrhea or epistaxis. Mucous membranes moist. NECK: Supple. CHEST: Clear to auscultation. No respiratory distress. HEART: Regular rate and rhythm. No murmur heard. Normal peripheral pulses. ABDOMEN: Soft, diffuse tenderness to palpation, nondistended, normal active bowel sounds. EXTREMITIES: Normal range of motion. No edema. SKIN: Warm, dry, no rash. NEURO: No focal deficits. Alert and oriented x3. PSYCH: Normal mood and affect. <Yamil Garcia MD - Last Filed: 03/08/23 06:44> Course Reevaluation(s) Reevaluation #1: 58-year-old male that was diagnosed with colon cancer and started chemotherapy in December presents to the emergency department for evaluation of decreased bowel movements. CT scan did show concerning for an apple core lesion. This was discussed with surgery and he was comfortable with the patient being admitted or with the patient having outpatient follow-up. Patient did discuss the issues with his oncologist and was advised to take laxatives. Patient was offered admission but patient and family were comfortable with following a clear liquid diet, taking lax
[2023-03-08 06:17] LABS: Alanine Aminotransferase 25 U/L (6-50); Albumin Level 4.1 g/dL (3.5-5.1); Alkaline Phosphatase 87 U/L (38-126); Anion Gap 6 mmol/L (8-16); Aspartate Amino Transferase 31 U/L (17-59); Bilirubin,Total 0.8 mg/dL (0.2-1.3); Blood Urea Nitrogen 10 mg/dL (9-20); Calcium 8.5 mg/dL (8.4-10.2); Carbon Dioxide 28 mmol/L (22-30); Chloride 102 mmol/L (98-107); Estimated CRCL calculation 128 ml/min; Estimated Glomerular Filt Rate > 60; Glucose 136 mg/dL (65-110); Lipase 77 U/L (23-300); Magnesium 2.3 mg/dL (1.6-2.3); Potassium 3.8 mmol/L (3.4-5.0); Sodium 136 mmol/L (137-145)
[2023-03-08 06:21] LABS: Add Urine Microscopic? YES
[2023-03-08 06:23] LABS: Lactic Acid Reflex 1.2 mmol/L (0.7-2.0)
[2023-03-08 06:24] LABS: Anisocytosis 3+ (NORMAL); Platelet Estimate Adequate (Adequate)
[2023-03-08 06:25] LABS: Schistocytes None Seen (NORMAL); Stomatocytes 1+ (NORMAL)
[2023-03-08 08:23] VITALS: BP 144/89; PULSE 79; RESP 16; O2SAT 100
[2023-03-08 08:37] VITALS: BP 133/88; O2SAT 100
== END 2023-03-08 08:40 | disposition home or self-care (01) ==
PROVIDERS: Emergency Provider Emergency Medicine; PCP Physician Assistant
DX: R19.4 Change in bowel habit (principal); I10 Essential (primary) hypertension; E78.5 Hyperlipidemia, unspecified; K21.9 Gastro-esophageal reflux disease without esophagitis; Z87.891 Personal history of nicotine dependence; R16.0 Hepatomegaly, not elsewhere classified; Z90.49 Acquired absence of other specified parts of digestive tract; K57.90 Diverticulosis of intestine, part unspecified, without perforation or abscess without bleeding; K40.90 Unilateral inguinal hernia, without obstruction or gangrene, not specified as recurrent; K63.9 Disease of intestine, unspecified
CPT/HCPCS: 36415; 74177; 80053; 81001; 83605; 83690; 83735; 85025; 93005; 96361; 96374; 96375; 99284; J2270; J2405; J7030; Q9967

== ENCOUNTER 2023-09-30 09:33 | Emergency (ER) | payer MEDICAID, SELFPAY ==
[2023-09-30 09:45] VITALS: BP 111/66; PULSE 72; RESP 16; TEMP 37.3; O2SAT 99
--- NOTE | 2023-09-30 09:55 | ED.EAR ---
HPI - Ear Problem General Chief complaint: Ear Stated complaint: Left Ear Irritation Time Seen by Provider: 09/30/23 09:36 Source: patient and family Mode of arrival: ambulatory Limitations: no limitations History of Present Illness HPI Narrative: Nick is a 58-year-old male patient presenting to the clinic today with complaints of left ear pain and drainage. He reports that this has been going over the last 2 days. Has been noticing some yellow drainage coming from the ear. He denies any fever or chills. Does have history of injury to the left ear due to a welding accident-patient has constant ringing in the left ear Related Data Allergies Allergy/AdvReac Type Severity Reaction Status Date / Time No Known Allergies Allergy Verified 09/30/23 09:44 Review of Systems Review of Systems: Pertinent positives per HPI. Patient denies any fever, chills, rash, headache, visual changes, dizziness, cough, runny nose, sore throat, shortness of breath, chest pain, palpitations, nausea, vomiting, diarrhea, constipation, abdominal pain, or any urinary issues. 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 There is no relevant family history pertinent to the patient complaint. Exam Narrative: General: Well-developed, well nourished, in no apparent distress Head: Normocephalic, atraumatic Eyes: Pupils equally round and reactive to light bilaterally, EOM intact, sclera and conjunctive clear, no discharge, lids normal Ears: Right tMs intact and clear, left TM intact, bulging, red, right ear canal clear, no drainage, left ear canal swollen with yellow discharge, grossly hearing normal. Nose: Nares patent, no discharge, no inflammation, no sinus tenderness. Mouth: Oropharynx without lesions or masses, good dentition, MMM. Neck: Supple, trachea midline, no enlargement of anterior or posterior cervical nodes, no thyroid masses or goiter palpable. Cardio: Regular rate and rhythm, s1 and s2 normal, no murmur appreciated. Resp: Clear to auscultation bilaterally anteriorly and posteriorly, no rhonchi, rales, wheezing or rubs Course Course Emergency Course: Portions of this record may have been created with voice recognition software. Level of Care: Express Care Visit Vital Signs Vital signs: Vital Signs Temperature 37.3 C 09/30/23 09:45 Pulse Rate 72 09/30/23 09:45 Respiratory Rate 16 09/30/23 09:45 Blood Pressure 111/66 09/30/23 09:45 Pulse Oximetry 99 09/30/23 09:45 Oxygen Delivery Room Air 09/30/23 09:45 Temperature 37.3 C 09/30/23 09:45 Pulse Rate 72 09/30/23 09:45 Respiratory Rate 16 09/30/23 09:45 Blood Pressure 111/66 09/30/23 09:45 Pulse Oximetry 99 09/30/23 09:45 Oxygen Delivery Room Air 09/30/23 09:45 Vital signs reviewed Medical Decision Making MDM Narrative Medical decision making narrative: At the time of visit patient is resting comfortably on the exam table. Patient appears to be nontoxic. Appears
== END 2023-09-30 10:08 | disposition home or self-care (01) ==
PROVIDERS: Emergency Provider Nurse Practitioner Family; PCP Physician Assistant
DX: H60.312 Diffuse otitis externa, left ear (principal); H66.002 Acute suppurative otitis media without spontaneous rupture of ear drum, left ear; I10 Essential (primary) hypertension; E78.5 Hyperlipidemia, unspecified; Z87.891 Personal history of nicotine dependence
CPT/HCPCS: 99213; G0463

== ENCOUNTER 2023-11-06 06:59 | Emergency (ER) | payer OTHER, SELFPAY ==
[2023-11-06] VITALS (15 sets, daily range): BP systolic 122–141; BP diastolic 69–90; PULSE 74–92; RESP 11–20; O2SAT 77–100
--- NOTE | ~2023-11-06 | CT_ITS ---
EXAMINATION: CTA chest PE protocol DATE: 11/06/2023 10:34 INDICATION: Chest pain. Shortness of breath. TECHNIQUE: Computed tomography angiography (CTA) of the chest was performed with 100 mL Omnipaque-350 intravenous contrast timed to evaluate the pulmonary arteries. Coronal maximum intensity projection 3D-reconstructions were created by the technologist. Automated exposure control and iterative reconst ruction technique were employed. The dose-length product was 688.48 mGy-cm. COMPARISON: CT abdomen and pelvis 03/08/2023 FINDINGS: There are blebs at the lung apices. There is mild scarring at the lung apices. No pleural e ffusion. The heart size is normal. No pericardial effusion. There is no pulmonary embolus. There are changes of right hepatectomy. There is mild thoracic spondylosis. IMPRESSION: 1. No pulmonary embolus. Reviewed, dictated and finalized at location A. ALL METAL STUD WORKER IMPRESSION: 1. No pulmonary embolus.
--- NOTE | ~2023-11-06 | XR_ITS ---
Portable chest x-ray Comparison: 11/25/2019 Clinical History: Chest pain Findings: Right-sided Mediport in place. Lungs are clear, without focal consolidation or pleural eff usion. Cardiomediastinal silhouette is stable. Bones and soft tissues are unremarkable. Impression: Clear lungs. Right-sided Mediport. Reviewed, dictated and finalized at location . RAFT SYSTEMS REPAIRER Impression: Clear lungs. Right-sided Mediport.
--- NOTE | 2023-11-06 07:05 | ECG_ITS ---
Measurements Intervals [place] Rate: 83 P: 51 SC: 157 QRS: -8 QRSD: 108 T: 48 QT: 375 QTc: 443 Interpretive Statements SINUS RHYTHM INCOMPLETE RIGHT BUNDLE BRANCH BLOCK [90+ ms QRS DURATION, TERMINAL R IN V1/V2, 40+ ms S IN I/aVL/V4/V5/V6] BORDERLINE ECG COMPARED TO ECG 03/08/2023 05:46:57 INCOMPLETE RIGHT BUNDLE-BRANCH BLOCK NOW PRESENT Electronically Signed On 11-06-2023 12:39:39 CIGARETTE MACHINE FILLER by Kyle Mackay M.D.
[2023-11-06] MEDS: ASPIRIN 81 MG CHEWABLE TABLET 324 MG PO (07:19)
--- NOTE | 2023-11-06 07:21 | ED.CHESTPAIN ---
HPI - Chest Pain General Chief Complaint: Chest Pain Stated Complaint: chest pain Time Seen by Provider: 11/06/23 07:19 History of Present Illness HPI narrative: Patient is a 58 year old male with history of metastatic colon cancer, s/p resection and liver mass resection, on chemotherapy here with chest pain. Patient states that he woke up around 4:00 a.m. this morning with some substernal chest pain. He notes that it feels like a hollow sensation . The pain does not radiate. It is associated with some mild nausea. He denies any diaphoresis. He has had some associated shortness of breath since this morning as well. He is currently on active chemotherapy. Not on any anticoagulation. No prior cardiac history. No prior history of PE or DVT. No cough, congestion, fever, chills. They note that he has been experiencing some hiccuping recently, has been prescribe a muscle relaxer by his oncologist. Follows with Oncologist in [place]. Prior surgeries were performed a [facility]. Patient is Sinhala speaking, used Customer Service Correspondence Clerk #[id number], patient confirmed with personal attendant that he would prefer to use family member for translation. Related Data Allergies Allergy/AdvReac Type Severity Reaction Status Date / Time No Known Allergies Allergy Verified 09/30/23 09:44 Review of Systems Review of Systems: All systems reviewed & are unremarkable except as noted in HPI and below PMFSH Past Medical History Medical History GERD (gastroesophageal reflux disease) HTN (hypertension) Hyperlipidemia Inguinal hernia Surgical History Surgical History H/O inguinal hernia repair History of laparoscopic cholecystectomy 04/24/20 History of orthopedic surgery left shoulder, lower back surgery Family History Family History Father Diabetes mellitus Social History Social History Smoking status: Former smoker Alcohol intake: never Living arrangements: with family Occupation/Education: unemployed 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 HEAD: Normocephalic, atraumatic. EYES: PERRLA and EOMI. ENT: Nares clear. Mucous membranes moist. NECK: Supple. CHEST: Clear to auscultation. No respiratory distress. HEART: Regular rate and rhythm. Normal peripheral pulses. ABDOMEN: Soft, nontender, nondistended. EXTREMITIES: Normal range of motion. No edema. SKIN: Warm, dry, no rash. NEURO: No focal deficits. Alert and oriented x3. PSYCH: Normal mood and affect. Course Course Emergency Course: Chart review performed. Patient here with chest pain since 0430 and DEANDRE. Triage vitals grossly normal. No PCP visits in our system, urgent care visit from 09/30/23 note reviewed. Patient was seen for ear drainage. His documented medical history includes GERD, HTN, HLD. Patient seen and evaluated, non toxic appearing. Not currently experiencing any pain or discomfort. Cardiac workup has been initiated. Will additionally due CTA PE study given shortness of breath, chest pain, active cancer. Patient agreeable. Lab work and imaging reviewed. CBC shows some mild pancytopenia consistent with active chemotherapy, low platelets present. Chemistry grossly normal. Mildly elevated bilirubin at 1.9. Initial troponin negative. Lipase mildly elevated at 430. CTA PE negative. Initial troponin was 0.015, repeat was minimally elevated at 0.036, 6 hour troponin was 0.022. Patient re-evaluated, feeling comfortable, has had no symptoms here in the department. Will prefer to be discharged home with outpatient follow-up. The results of pertinent diagnostic studies and exam
[2023-11-06 07:37] LABS: Basophils Percent Auto 0.6 % (0.2-1.2); Eosinophils Absolute Auto 0.1 K/mm3 (0-0.3); Eosinophils Percent Auto 1.8 % (0-4.4); Hematocrit 36.6 % (42.0-52.0); Hemoglobin 11.5 g/dL (14.0-18.0); Immature Granulocyte Absolute 0.01 K/mm3 (0.00-0.031); Immature Granulocyte Percent A 0.3 % (0-0.5); Lymphocytes Absolute Auto 0.54 K/mm3 (0.9-3.2); Lymphocytes Percent Auto 16.6 % (18.3-44.2); Mean Corpuscular HGB Conc 31.4 g/dl (32-36); Mean Corpuscular Hemoglobin 26.3 pg (26-34); Mean Corpuscular Volume 83.8 fl (80-100); Mean Platelet Volume 9.1 fl (7.4-10.4); Monocytes Absolute Auto 0.4 K/mm3 (0.1-0.6); Monocytes Percent Auto 11.3 % (2.6-8.5); Neutrophils Absolute Auto 2.3 K/mm3 (1.3-6.7); Neutrophils Percent Auto 69.4 % (45.5-73.1); Platelet Count Result 97 k/mm3 (150-375); Red Blood Count 4.37 M/mm3 (4.6-6.20); Red Cell Distribution Width 17.5 % (11.5-14.5); White Blood Count 3.3 K/mm3 (4.5-10.0)
[2023-11-06 07:45] LABS: Alanine Aminotransferase 24 U/L (6-50); Albumin Level 3.7 g/dL (3.5-5.1); Alkaline Phosphatase 88 U/L (38-126); Anion Gap 7 mmol/L (8-16); Aspartate Amino Transferase 31 U/L (17-59); Bilirubin,Total 1.9 mg/dL (0.2-1.3); Blood Urea Nitrogen 13 mg/dL (9-20); Calcium 8.6 mg/dL (8.4-10.2); Carbon Dioxide 23 mmol/L (22-30); Chloride 105 mmol/L (98-107); Estimated CRCL calculation 98 ml/min; Estimated Glomerular Filt Rate > 60; Glucose 128 mg/dL (65-110); Lipase 430 U/L (23-300); Potassium 3.5 mmol/L (3.4-5.0); Sodium 135 mmol/L (137-145)
[2023-11-06 07:48] LABS: INR 1.1
[2023-11-06 07:49] LABS: Partial Thromboplastin Time 27.5 SECONDS (22.3-36.8)
[2023-11-06 07:52] LABS: Atypical Lymphocytes Present; Hypochromasia 1+ (NORMAL); Platelet Estimate Decreased (Adequate); Schistocytes None Seen (NORMAL)
[2023-11-06 07:57] LABS: Troponin I 0.015 ng/mL (0.000-0.034)
--- NOTE | 2023-11-06 11:01 | ECG_ITS ---
Measurements Intervals [place] Rate: 77 P: 49 VA: 155 QRS: 0 QRSD: 97 T: 30 QT: 372 QTc: 423 Interpretive Statements SINUS RHYTHM INCOMPLETE RIGHT BUNDLE BRANCH BLOCK [90+ ms QRS DURATION, TERMINAL R IN V1/V2, 40+ ms S IN I/aVL/V4/V5/V6] ABNORMAL ECG COMPARED TO ECG 11/06/2023 07:11:04 NO SIGNIFICANT CHANGES Electronically Signed On 11-06-2023 12:42:21 CEMENT RAILROAD CAR LOADER by Kyle Mackay M.D.
[2023-11-06 11:56] LABS: Troponin I 0.036 ng/mL (0.000-0.034)
[2023-11-06 14:41] LABS: Troponin I 0.022 ng/mL (0.000-0.034)
--- NOTE | 2023-11-06 15:06 | PC.NURSE ---
Port flushed and deaccessed per protocol.
--- NOTE | 2023-11-06 15:54 | ECG_ITS ---
Measurements Intervals [place] Rate: 76 P: 42 [place]: 158 QRS: -1 QRSD: 109 T: 28 QT: 385 QTc: 433 Interpretive Statements SINUS RHYTHM INCOMPLETE RIGHT BUNDLE BRANCH BLOCK [90+ ms QRS DURATION, TERMINAL R IN V1/V2, 40+ ms S IN I/aVL/V4/V5/V6] ABNORMAL ECG COMPARED TO ECG 11/06/2023 11:07:14 NO SIGNIFICANT CHANGES Electronically Signed On 11-07-2023 14:59:42 PIPE MACHINE OPERATOR by Kyle Mackay M.D.
== END 2023-11-06 15:08 | disposition home or self-care (01) ==
PROVIDERS: Student in an Organized Health Care Education/Training Program; Emergency Provider Student in an Organized Health Care Education/Training Program
DX: R07.89 Other chest pain (principal); C18.9 Malignant neoplasm of colon, unspecified; C78.7 Secondary malignant neoplasm of liver and intrahepatic bile duct; I10 Essential (primary) hypertension; E78.5 Hyperlipidemia, unspecified; K21.9 Gastro-esophageal reflux disease without esophagitis; Z87.891 Personal history of nicotine dependence; Z79.60 Long term (current) use of unspecified immunomodulators and immunosuppressants; Z90.49 Acquired absence of other specified parts of digestive tract; I45.10 Unspecified right bundle-branch block
CPT/HCPCS: 36415; 71045; 71275; 80053; 83690; 84484; 85025; 85055; 85610; 85730; 93005; 99284; A9270; J1642; Q9967

== ENCOUNTER 2023-12-29 10:31 | Outpatient (CLI) | payer OTHER, SELFPAY | END 2023-12-29 10:32 | disposition home or self-care (01) | LOC: ANHAUDIO 10:32 | PROVIDERS: Visit Provider Otolaryngology | DX: H93.12 Tinnitus, left ear (principal); H90.41 Sensorineural hearing loss, unilateral, right ear, with unrestricted hearing on the contralateral side | CPT/HCPCS: 92553; 92555 ==

== ENCOUNTER 2025-02-07 10:12 | Emergency (ER) | payer OTHER, SELFPAY ==
[2025-02-07 10:20] VITALS: BP 141/85; PULSE 67; RESP 16; TEMP 36.4; O2SAT 100
--- NOTE | 2025-02-07 10:42 | ED.WOUNDLAC ---
HPI - Wound/Laceration General Chief Complaint: Wound/Laceration Stated Complaint: Removal of Stitches Source: patient Mode of arrival: ambulatory Limitations: no limitations History of Present Illness HPI narrative: Patient is a 60 year old female who presents to the clinic to have his sutures removed. He has 9 stitches placed 14 days ago to his left index finger. Denies any concerns for infection at this time. Related Data Home Medications Medication Instructions Recorded Confirmed Last Taken Type rosuvastatin 10 mg tablet mg 02/07/25 Unknown History Allergies Allergy/AdvReac Type Severity Reaction Status Date / Time No Known Allergies Allergy Verified 02/07/25 10:21 Review of Systems Review of Systems: CONSTITUTIONAL: Denies body aches, fever, chills, or sweats. EYES: Denies visual changes, redness, or discharge. ENT: Denies rhinorrhea, congestion CARDIOVASCULAR: Denies chest pain, palpitations, or edema. RESPIRATORY: Denies cough or dyspnea. GASTROINTESTINAL: Denies abdominal pain, nausea, vomiting, or diarrhea. SKIN: Reports need of removal of 9 stitches to left index finger. MUSCULOSKELETAL: Denies back pain, joint pain, or myalgia. NEUROLOGIC: Denies headache, numbness, tingling, or weakness. All systems reviewed & are unremarkable except as noted in HPI and below PMFSH Past Medical History Medical History (Updated 02/07/25 @ 10:45 by Swetha Stein APRN) Cancer Inguinal hernia GERD (gastroesophageal reflux disease) Hyperlipidemia HTN (hypertension) Surgical History Surgical History History of laparoscopic cholecystectomy 04/24/20 History of orthopedic surgery left shoulder, lower back surgery H/O inguinal hernia repair Family History Family History (Updated 12/01/23 @ 10:40 by Teri Torres CMA) Father Diabetes mellitus Sibling Diabetes mellitus Social History Social History (Updated 12/01/23 @ 10:40 by Teri Torres CMA) Smoking status: Former smoker Alcohol intake: never Substance use: never Substance use type: does not use Do You Feel Safe in your Home?: Yes Lack of Transportation: No Lack of Food: Never True Current Housing: I Have Housing Concerned About Future Housing: No Difficulty Paying Gas/Electric Bills: No Difficulty Paying for Meds: No Currently Unemployed: No Education: Grade School Difficulty w/ Childcare or Family Care: No Living arrangements: with family Occupation/Education: unemployed 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 Please see nursing chart for further information. There is no relevant family history pertinent to the presenting complaint. Exam Narrative: GENERAL: Well-appearing HEAD: Normocephalic, atraumatic. EYES: conjunctivae clear, and EOMI. ENT: Mucous membranes moist. Oropharynx without edema, erythema or lesions. NECK: Supple. No lymphadenopathy CHEST: Clear to auscultation. HEART: Regular rate and rhythm. SKIN: Warm, dry. 9 stitches removed from left index finger. No erythema. No drainage. Full ROM. NEURO: Alert and oriented x3. Course Course Level of Care: Express Care Visit Vital Signs Vital signs: Vital Signs Temperature 97.5 F L 02/07/25 10:20 Pulse Rate 67 02/07/25 10:20 Respiratory Rate 16 02/07/25 10:20 Blood Pressure 141/85 H 02/07/25 10:20 Pulse Oximetry 100 02/07/25 10:20 Temperature 97.5 F L 02/07/25 10:20 Pulse Rate 67 02/07/25 10:20 Respiratory Rate 16 02/07/25 10:20 Blood Pressure 141/85 H 02/07/25 10:20 Pulse Oximetry 100 02/07/25 10:20 Reviewed MDM - Wound/Laceration MDM Narrative Medical decision making narrative: Discussed physical exam findings.Advised supportive measures and signs/symptoms to go to the ER. Pt is appropriate for outpatient treatment and follow up. Differential Diagnosis Differential diagnosis: Likely other (suture removal) Critical Care Time Critical Care Time Critical Care Time: No Discharge Plan Discharge Clinical Impression: Visit for suture removal Patient Disposition: Home Condition: Stable Instructions: Antibiotic Form, Stitches Removal (ED) Additional Instructions: DESPUÉS de retirar los puntos: Limpie la herida según las indicaciones. Lave cuidadosamente la herida con agua y jabón. Seque la tish con lucrecia toalla limpia. Proteja la herida. La herida puede hincharse, sangrar o abrirse si se estira o se golpea. Es posible que necesite usar un vendaje que sujete la herida hasta que sane por completo. Cómo minimizar lucrecia cicatriz: Después de retirar los puntos, mantenga la cicatriz alejada meghana. Use protector solar si la herida está expuesta al evert. Puede usar lucrecia almohadilla de silicona de venta anushka o masajear la cicatriz con ungüento (natasha 10 a 15 minutos al día) después de un mes. Consulte a workman médico si maddy que está desarrollando un queloide. AFTER the stitches are removed: Clean your wound as directed. Carefully wash your wound with soap and water. Pat the area dry with a clean towel. Protect your wound. Your wound can swell, bleed, or split open if it is stretched or bumped. You may need to wear a bandage that supports your wound until it is completely healed. How to minimize a scar: After sutures are removed, keep your scar out of the sun. Use sunblock if your wound is exposed to the sun. You may use OTC silicone pad and/or scar massage with ointment (for 10-15 min a day) after one month. Talk to your doctor if you think you are developing a keloid. Patient Language: [place] Island[place] Prescriptions: No Action rosuvastatin 10 mg tablet Follow-up/Referrals: UNKNOWN,DOCTOR [Primary Care Provider] - Time of Disposition: 10:45
== END 2025-02-07 10:50 | disposition home or self-care (01) ==
DX: S61.211D Laceration without foreign body of left index finger without damage to nail, subsequent encounter (principal); X58.XXXD Exposure to other specified factors, subsequent encounter; I10 Essential (primary) hypertension; E78.5 Hyperlipidemia, unspecified; K21.9 Gastro-esophageal reflux disease without esophagitis; Z85.9 Personal history of malignant neoplasm, unspecified
CPT/HCPCS: 99211; G0463

== ENCOUNTER 2025-06-01 08:25 | Emergency (ER) | payer SELFPAY ==
[2025-06-01 08:37] VITALS: BP 136/81; PULSE 63; RESP 20; TEMP 36.6; O2SAT 100
--- NOTE | 2025-06-01 08:53 | ED.EAR ---
HPI - Ear Problem General Chief complaint: Ear Stated complaint: left inner ear pain Time Seen by Provider: 06/01/25 08:54 Source: patient Mode of arrival: ambulatory Limitations: no limitations History of Present Illness HPI Narrative: 60-year-old male presents with c/o yellow drainage to L ear for the past several days. No pain. hx of perforated eardrum from welding accident 3 years ago. Saw ENT following injury. Saw ENT a year ago for follow up. was not able to have left TM surgically repaired. Was told to use cotton ball covered in Vaseline when showering to prevent getting water in to left ear canal. Patient states he also wears cotton ball when at work. Keeps open to air at bedtime. All systems reviewed and negative except as noted above. Related Data Home Medications ?Medication ?Instructions ?Recorded ?Confirmed ?Last Taken ?Type rosuvastatin 10 mg tablet mg 02/07/25 Unknown History Allergies Allergy/AdvReac Type Severity Reaction Status Date / Time No Known Allergies Allergy Verified 06/01/25 08:55 [facility] Past Medical History Medical History (Updated 06/01/25 @ 09:07 by Jessica Toth NP) Cancer Inguinal hernia GERD (gastroesophageal reflux disease) Hyperlipidemia HTN (hypertension) Surgical History Surgical History History of laparoscopic cholecystectomy 04/24/20 History of orthopedic surgery left shoulder, lower back surgery H/O inguinal hernia repair Family History Family History (Updated 12/01/23 @ 10:40 by Teri Torres CMA) Father Diabetes mellitus Sibling Diabetes mellitus Social History Social History (Updated 12/01/23 @ 10:40 by Teri Torres CMA) Smoking status: Former smoker Alcohol intake: never Substance use: never Substance use type: does not use Do You Feel Safe in your Home?: Yes Lack of Transportation: No Lack of Food: Never True Current Housing: I Have Housing Concerned About Future Housing: No Difficulty Paying Gas/Electric Bills: No Difficulty Paying for Meds: No Currently Unemployed: No Education: Grade School Difficulty w/ Childcare or Family Care: No Living arrangements: with family Occupation/Education: unemployed 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 There is no relevant family history pertinent to the presenting complaint. Exam Narrative: GENERAL: This is a well-nourished, well-developed patient, in no apparent distress. HEAD: normocephalic, atraumatic. EYES: PERRL. Sclera clear/white. Vision is grossly intact. EARS: External ears normal, auditory canals clear and without drainage, Left TM is perforated, small amount of yellow drainage is noted. Right TM is normal. Hearing grossly intact. NOSE: External nose normal NECK: Neck supple, non-tender without lymphadenopathy, masses or thyromegaly. CARDIOVASCULAR: Regular rate and rhythm without murmurs, gallops, or rubs. RESPIRATORY: Clear to auscultation. Breath sounds equal bilaterally. No wheezes, rales, or rhonchi. SKIN: warm, Dry, intact with no suspicious lesions or rash, good texture and turgor. NEURO: awake, alert, and oriented to person, place and time. There were no obvious focal neurologic abnormalities. EXTREMITIES: No joint tenderness, effusion, or edema noted. Course Course Level of Care: Express Care Visit Vital Signs Vital signs: Reviewed Medical Decision Making MDM Narrative Medical decision making narrative: patient given ofloxacin for left otitis media. perforated left TM. refer to ENT for follow-up if drainage Does not resolve. Discharge Plan Discharge Clinical Impression: Acute left otitis media Patient Disposition: Home Condition: Stable Instructions: Antibiotic Form, Ear Infection (ED) Additional Instructions: Place antibiotic ear drops as prescribed. Follow up with research administrator if not improving. Patient Language: Nepali Prescriptions: New ofloxacin 0.3 % drops 10 drp LEFT EAR DAILY 7 Days Qty: 10 0RF No Action rosuvastatin 10 mg tablet Follow-up/Referrals: Zbigniew Morna MD [Physician, Ear, Nose, Throat] Referral Note: Follow-up with your specialist if symptoms not improving. UNKNOWN,DOCTOR [Primary Care Provider] Time of Disposition: 09:08
== END 2025-06-01 09:18 | disposition home or self-care (01) ==
PROVIDERS: Emergency Provider Nurse Practitioner Family
DX: H66.92 Otitis media, unspecified, left ear (principal); Z87.891 Personal history of nicotine dependence; I10 Essential (primary) hypertension; E78.5 Hyperlipidemia, unspecified; K21.9 Gastro-esophageal reflux disease without esophagitis; Z85.9 Personal history of malignant neoplasm, unspecified
CPT/HCPCS: 99213; G0463

== ENCOUNTER 2025-07-08 11:05 | Emergency (ER) | payer SELFPAY ==
--- NOTE | 2025-07-08 11:08 | ED_ITS ---
HPI - General Adult General Chief complaint: Eye Problems Stated complaint: Eyes Irritation Time Seen by Provider: 07/08/25 11:22 Source: patient, RN notes reviewed, old records reviewed and thinner sprayer (Ecuadorean, daughter) Mode of arrival: ambulatory Limitations: no limitations History of Present Illness HPI narrative: 60-year-old male presents to the [facility] with concerns of a foreign body in the right eye. States that he was working with metal, was wearing safety glasses, on Friday when he feels like a piece of metal shaving got into his right eye. Had tried flushing it. Area is red. States he does have discomfort but no visual changes. Reports that he is up-to-date on immunizations Onset (ago): day(s) (3) Treatments prior to arrival: other (Eye flushing) Related Data Home Medications ?Medication ?Instructions ?Recorded ?Confirmed ?Last Taken ?Type rosuvastatin 10 mg tablet mg 02/07/25 Unknown History Allergies Allergy/AdvReac Type Severity Reaction Status Date / Time No Known Allergies Allergy Verified 07/08/25 11:19 Review of Systems 2 Review of Systems: All systems reviewed & are unremarkable except as noted in HPI and below Constitutional: Constitutional: Reports no additional constitutional complaints Eyes: Eyes: Reports as per HPI, Reports irritation and Denies loss of vision Musculoskeletal: Musculoskeletal: Reports no additional musculoskeletal complaints Integumentary/Breasts: Skin/Breast: Reports system reviewed and no additional complaints, except as docu PMFSH Past Medical History Medical History Cancer Inguinal hernia GERD (gastroesophageal reflux disease) Hyperlipidemia HTN (hypertension) Surgical History Surgical History History of laparoscopic cholecystectomy 04/24/20 History of orthopedic surgery left shoulder, lower back surgery H/O inguinal hernia repair Family History Family History Father Diabetes mellitus Sibling Diabetes mellitus Social History Social History Smoking status: Former smoker Alcohol intake: never Substance use: never Substance use type: does not use Do You Feel Safe in your Home?: Yes Lack of Transportation: No Lack of Food: Never True Current Housing: I Have Housing Concerned About Future Housing: No Difficulty Paying Gas/Electric Bills: No Difficulty Paying for Meds: No Currently Unemployed: No Education: Grade School Difficulty w/ Childcare or Family Care: No Living arrangements: with family Occupation/Education: unemployed 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 There is no relevant family history pertinent to the patient complaint. Exam 2 Const: General: cooperative, healthy appearing, comfortable, no acute distress, well developed, alert and well nourished Nutritional Appearance: w ell nourished Orientation/consciousness: patient oriented x3 Limitations: no limitations HENMT: Head: normal to inspection Ears: hearing grossly normal bilaterally Mouth: Yes Normal oral and palatal mucosa present, Yes lip normal and Yes tongue normal Eyes: General: appearance normal, both eyes and all related structures V isual Forrest: normal visual forrest by confrontation Alignment and Position: a lignment normal Conjunctivae: conjunctival abnormality right conjunctival injection and discharge other (Clear tears) Sclera: scleral abnormality right scleral injection Cornea: corneas abnormal on the right fluorescein used and foreign body metallic and fluorescein used Pupils: Equal, round and reactive pupils present EOM: EOMs intact bilaterally Eyes/upper lids images: 1. FB Neck: Neck: normal visual inspection, full ROM, no lymphadenopathy and no meningeal signs Chest: Chest palpation & inspection: normal inspection of the chest Resp: Effort & Inspection: normal respiratory effort and able to speak in complete sentences Cardio: Rate: regular rate Skin: General skin exam: normal color and no rashes or lesions noted Neuro: General: patient oriented x3, gait normal, moves all extremities and no meningeal signs Cognition (Neuro): normal cognition Speech: normal speech Gait exam (Neuro): Normal gait present Extrem: General: normal to inspection, full ROM, capillary refill normal and normal gait Psych: Appearance: grossly normal and well kempt Mental Status: mental status grossly normal Speech and movement: Normal speech and movement present and Clear speech present Affect: normal affect Attitude: cooperative Course Course Level of Care: Express Care Visit Vital Signs Vital signs: Vital Signs Temperature 98.2 F 07/08/25 11:25 Pulse Rate 70 07/08/25 11:25 Respiratory Rate 16 07/08/25 11:25 Blood Pressure 141/81 H 07/08/25 11:25 Pulse Oximetry 100 07/08/25 11:25 Oxygen Delivery Room Air 07/08/25 11:25 Temperature 98.2 F 07/08/25 11:25 Pulse Rate 70 07/08/25 11:25 Respiratory Rate 16 07/08/25 11:25 Blood Pressure 141/81 H 07/08/25 11:25 Pulse Oximetry 100 07/08/25 11:25 Oxygen Delivery Room Air 07/08/25 11:25 Reviewed Transfer Transfered to: [facility] Transportation: Other (POV) Transfer rationale: Patient with foreign body x3 days right eye sending for higher level of care Accepting physician: Spoke with Christy GUTIERREZ, no doctors given Medical Decision Making MDM Narrative Medical decision making narrative: Patient sitting in exam room. Using daughter for thinner sprayer services. Patient with foreign body to center pupil x3 days, sending for higher level of care. Transfer instructions reviewed with patient to go directly to the ER. Daughter states that she will drive. All questions have been answered, and the patient deny any further questions. Some parts of this dictation were generated by voice recognition software and may contain typographical and/or grammatical inaccuracies. Differential Diagnosis Differential Diagnosis: eye abrasion, ulceration, foreign body Medical Records Medical records reviewed: Yes I reviewed the external patient's medical records. Vital Signs Vital Signs: Vital Signs Temperature 98.2 F 07/08/25 11:25 Pulse Rate 70 07/08/25 11:25 Respiratory Rate 16 07/08/25 11:25 Blood Pressure 141/81 H 07/08/25 11:25 Pulse Oximetry 100 07/08/25 11:25 Oxygen Delivery Room Air 07/08/25 11:25 Temperature 98.2 F 07/08/25 11:25 Pulse Rate 70 07/08/25 11:25 Respiratory Rate 16 07/08/25 11:25 Blood Pressure 141/81 H 07/08/25 11:25 Pulse Oximetry 100 07/08/25 11:25 Oxygen Delivery Room Air 07/08/25 11:25 Reviewed Lab Data Lab results reviewed: Yes I reviewed the patient's lab results. Labs: Reviewed Critical Care Time Critical Care Time Critical Care Time: No Discharge Plan Discharge Clinical Impression: Foreign body in eyeball, right Qualifiers: Encounter type: initial encounter Qualified Code(s): S05.51XA - Penetrating wound with foreign body of right eyeball, initial encounter Patient Disposition: Acute Care Hospital Condition: Stable Patient Language: Ecuadorean Prescriptions: No Action rosuvastatin 10 mg tablet Follow-up/Referrals: UNKNOWN,DOCTOR [Non-Staff]
[2025-07-08 11:25] VITALS: BP 141/81; PULSE 70; RESP 16; TEMP 36.8; O2SAT 100
== END 2025-07-08 11:41 | disposition short-term general hospital (02) ==
PROVIDERS: Emergency Provider Nurse Practitioner
DX: S05.51XA Penetrating wound with foreign body of right eyeball, initial encounter (principal); X58.XXXA Exposure to other specified factors, initial encounter; I10 Essential (primary) hypertension; E78.5 Hyperlipidemia, unspecified; K21.9 Gastro-esophageal reflux disease without esophagitis; Z87.891 Personal history of nicotine dependence; Z85.9 Personal history of malignant neoplasm, unspecified
CPT/HCPCS: 99212; A9270; G0463